=== PATIENT | male | born 1965 | race Caucasian/White ===

== ENCOUNTER 2023-06-07 18:22 | Emergency (ER) | payer OTHER ==
[2023-06-07] MEDS ORDERED: diphenhydrAMINE 50 MG/ML SDV IM ONE (18:48)
[2023-06-07] MEDS ORDERED: predniSONE 20 MG Tab PO ONE (18:48)
[2023-06-07] MEDS ORDERED: Sodium Chloride 0.9% 10 ML Syringe FLUSH PRN (18:59)
[2023-06-07 19:12] LABS: BASOPHILS ABSOLUTE AUTO 0.02 K/uL (0.00-0.20); BASOPHILS PERCENT AUTO 0.2 % (0.0-2.0); EOSINOPHILS ABSOLUTE AUTO 0.11 K/uL (0.00-0.50); HEMATOCRIT 46.8 % (39.0-49.0); HEMOGLOBIN 16.6 g/dL (13.1-16.8); LYMPHOCYTES ABSOLUTE AUTO 2.07 K/uL (0.50-3.50); LYMPHOCYTES PERCENT AUTO 19.2 % (10.0-50.0); MEAN CORPUSCULAR HEMOGLOBIN 33.4 pg (28.2-33.3); MEAN CORPUSCULAR HGB CONC 35.5 g/dL (31.7-36.0); MEAN CORPUSCULAR VOLUME 94.2 fL (84.0-98.0); MONOCYTES ABSOLUTE AUTO 0.83 K/uL (0.00-1.00); MONOCYTES PERCENT AUTO 7.7 % (2.0-14.0); NEUTROPHILS ABSOLUTE AUTO 7.75 K/uL (1.40-7.00); NEUTROPHILS PERCENT AUTO 71.9 % (45.0-80.0); PLATELET COUNT,PLT 300 K/uL (150-350); RED BLOOD CELL COUNT 4.97 M/uL (4.33-5.41); RED CELL DISTRIBUTION WIDTH 12.6 % (11.2-14.1); WHITE BLOOD CELL COUNT,WBC 10.8 K/uL (4.0-10.2)
[2023-06-07 19:32] LABS: ALBUMIN 4.1 g/dL (3.4-5.0); BILIRUBIN TOTAL 0.4 mg/dL (0.2-1.0); CALCIUM 9.3 mg/dL (8.5-10.1); CARBON DIOXIDE,CO2 23.5 mmol/L (21.0-32.0); CREATININE 1.05 mg/dL (0.51-1.17); EST CRCL DRUG DOSING (CG) 78.21 mL/min; MAGNESIUM 1.7 mg/dL (1.8-2.4); PROTEIN TOTAL,TP 7.6 g/dL (6.4-8.2)
[2023-06-07 19:43] LABS: ANION GAP 13.5 meq/L (7-15)
[2023-06-07] MEDS ORDERED: cloNIDine 0.1 MG Tab PO ONE (19:50)
== END 2023-06-07 20:43 | disposition home or self-care (01) ==
LOC: LL.ED 18:22
DX: T78.40XA Allergy, unspecified, initial encounter (principal); I10 Essential (primary) hypertension; E83.42 Hypomagnesemia
CPT/HCPCS: 36415; 80053; 83605; 83735; 85025; 96372; 99283; A9270-GY; J1200; J7512